=== PATIENT | male | born 1965 | race Caucasian/White ===

== ENCOUNTER 2018-07-30 08:55 | Emergency (ER) | payer OTHER ==
[2018-07-30 09:07] VITALS: BP 152/91; PULSE 70; TEMP 98.2; BMI 29.1
[2018-07-30] MEDS ORDERED: IBUPROFEN 400 MG TABLET (FP) PO ONE ×2 (09:29→09:31)
--- NOTE | 2018-07-30 10:04 | PDOC ---
History of Present Illness - General Chief Complaint: Pain, Acute Stated Complaint: RT SHOULDER PAIN Time Seen by Provider: 07/30/18 09:12 History Source: Patient Exam Limitations: No Limitations Past History - Past Medical History Allergies/Adverse Reactions: Allergies Allergy/AdvReac Type Severity Reaction Status Date / Time No Known Allergies Allergy Verified 07/30/18 09:07 Home Medications: Ambulatory Orders Levothyroxine [Synthroid -] 150 mcg PO DAILY 07/30/18 Losartan Potassium 50 mg PO ASDIR 07/30/18 Metformin HCl [Glucophage] 1,000 mg PO ASDIR 07/30/18 Simvastatin 40 mg PO ASDIR 07/30/18 COPD: No Diabetes: Yes - Suicide/Smoking/Psychosocial Hx Smoking History: Never smoked Information on smoking cessation initiated: No Hx Alcohol Use: No Drug/Substance Use Hx: No Substance Use Type: None *Physical Exam - Vital Signs Last Vital Signs Temp Pulse Resp BP Pulse Ox 98.2 F 70 17 152/91 98 07/30/18 09:04 07/30/18 09:04 07/30/18 09:04 07/30/18 09:04 07/30/18 09:04 - Physical Exam General Appearance: No: Apparent Distress Musculoskeletal: positive: Decreased Range of Motion (Decreased ROM of R shoulder; pain on abduction, flexion of shoulder, mild TTP along R lateral shoulder, no joint effusion or deformity noted, no clavicular tenderness, no step-off) Extremity: positive: Normal Capillary Refill Integumentary: positive: Normal Color Neurologic: positive: Fully Oriented, Alert, Normal Mood/Affect. negative: Numbness, Sensory Deficit Moderate Sedation - Procedure Monitoring Vital Signs: Procedure Monitoring Vital Signs Temperature 98.2 F 07/30/18 09:04 Pulse Rate 70 07/30/18 09:04 Respiratory Rate 17 07/30/18 09:04 Blood Pressure 152/91 07/30/18 09:04 O2 Sat by Pulse Oximetry (%) 98 07/30/18 09:04 ED Treatment Course - RADIOLOGY Radiology Studies Ordered: Category Date Time Status SHOULDER-RIGHT [RAD] Stat Radiology 07/30/18 09:29 Taken - Medications Given in the ED: ED Medications Discontinued Medications Generic Name Dose Route Start Last Admin Trade Name Freq PRN Reason Stop Dose Admin Ibuprofen 800 mg 07/30/18 09:29 07/30/18 09:34 Motrin - PO 07/30/18 09:30 800 mg ONCE ONE Administration Medical Decision Making - Medical Decision Making 53 y/o M with hx of DM presents with R shoulder pain x 2 weeks, gradually getting worse. Denies trauma to site. Works as cook. Has taken Tylenol without much relief of pain. Is R handed. Denies neck pain, numbness/tingling/weakness of extremities. R shoulder xray with no acute findings Could possibly be tendonitis Will refer to orthopedics 07/30/18 10:00 *DC/Admit/Observation/Transfer Diagnosis at time of Disposition: Shoulder pain, right Qualifiers: Chronicity: acute Qualified Code(s): M25.511 - Pain in right shoulder - Discharge Dispostion Disposition: HOME Condition at time of disposition: Stable Decision to Admit order: No - Referrals Referrals: Isiah Holloway DO [Staff Physician] - Call tomorrow - Patient Instructions Printed Discharge Instructions: DI for Shoulder Pain Additional Instructions: Thank you for choosing [facility]. It was a pleasure taking care of you. You may take Motrin 600 mg every 4 hours by mouth as needed for mild to moderate pain. Take Motrin with food. Continue warm compresses Follow-up with orthopedics for further care. Return to the Emergency Department if your symptoms worsen or persist or have other concerning symptoms. - Post Discharge Activity
== END 2018-07-30 10:11 | disposition home or self-care (01) ==
LOC: JERFT 08:55
DX: M25.511 Pain in right shoulder (principal); E11.9 Type 2 diabetes mellitus without complications
CPT/HCPCS: 73030-TC-RT-FY; 99281-25